=== PATIENT | female | born 1980 | race Caucasian/White ===

== ENCOUNTER 2016-10-12 16:54 | Emergency (ER) | payer OTHER ==
[~2016-10-12] VITALS: Wt 65.0 kg
[2016-10-12 20:19] VITALS: BP 122/76; PULSE 89; RESP 18; TEMP 98.2
--- NOTE | 2016-10-12 20:19 | ERD ---
ER Documentation Chief Complaint Date/Time DATE: 10/12/16 TIME: 20:18 Chief Complaint MILD HEADACHE, PALPITATIONS, ANXIETY HPI Patient is a 36-year-old female with no medical problems who presents with shortness of breath. She said that she was driving and then all of a sudden felt like she could not breathe. She had a headache and felt like her throat was closing. It was acute in onset. It happened at 4:30 PM. Now she feels better and has no headache. She has a history of panic attack and said this felt similar. She did not have any new medicines, foods, or lotions and did not think this was an allergic reaction. She is speaking without difficulty. ROS All systems reviewed and are negative except as per history of present illness. Allergies Allergies: Coded Allergies: No Known Allergy (Unverified , 10/12/16) PMhx/Soc Medical and Surgical Hx: pt denies Medical Hx, pt denies Surgical Hx Hx Alcohol Use: No Hx Substance Use: No Hx Tobacco Use: No Smoking Status: Never smoker FmHx Family History: No diabetes Physical Exam Vitals Vital Signs Date Time Temp Pulse Resp B/P Pulse Ox O2 Delivery O2 Flow Rate FiO2 10/12/16 16:59 97.5 93 17 128/84 100 Physical Exam Const: No acute distress Head: Atraumatic Eyes: Normal Conjunctiva ENT: Normal External Ears, Nose and Mouth. No oropharyngeal swelling, no stridor over the neck Neck: Full range of motion..~ No meningismus. Resp: Clear to auscultation bilaterally Cardio: Regular rate and rhythm, no murmurs Abd: Soft, non tender, non distended. Normal bowel sounds Skin: No petechiae or rashes Back: No midline or flank tenderness Ext: No cyanosis, or edema Neur: Awake and alert Psych: Normal Mood and Affect Procedures/MDM EKG read by me: Rate/Rhythm: Regular rate and rhythm at a normal rate Intervals: Normal Impression: No evidence of ischemia or arrhythmia Accu-Chek is normal. Urine test is negative. Patient is a 36-year-old female with no medical problems who presents with feelings of shortness of breath, headache, and throat closing. Her EKG, Accu- Chek, and tests are normal. At this point I believe this may have been a panic attack. She is well-appearing with stable vital signs. She is in no distress. There is no sign of allergic reaction or oropharyngeal swelling. There is no stridor over the neck. At this point I believe outpatient management is appropriate. She will need close follow-up with her primary doctor within 24-48 hours. She can return sooner for any worsening symptoms. Departure Diagnosis: Primary Impression: Panic attack Condition: Fair Patient Instructions: Panic Attack Referrals: Dr. Hernandez Additional Instructions: Llame al doctor MAANA y zaina charley JOYA PARA DENTRO DE 1-2 VÁSQUEZ.Dgale a la secretaria que nosotros le instruimos hacer esta joya.Avise o llame si ladd condicin se empeora antes de la joya. Regresa aqui si peor o no mejor. KOBE PIÑA MD Oct 12, 2016 20:19
== END 2016-10-12 20:19 | disposition home or self-care (01) ==
LOC: FTE 16:54
DX: F41.0 Panic disorder [episodic paroxysmal anxiety] (principal)
CPT/HCPCS: 82962; 93005